=== PATIENT | male | born 1985 | race Caucasian/White ===

== ENCOUNTER 2025-04-25 10:18 | Emergency (ER) | payer OTHER ==
[~2025-04-25] VITALS: Ht 172.7 cm; Wt 82.0 kg
[2025-04-25 10:23] VITALS: O2SAT 99
[2025-04-25] MEDS: KETOROLAC 30MG/ML VIAL IM ONE (11:00)
[2025-04-25] MEDS: MORPHINE SULFATE 4 MG/ML INJ (FOR IV/IM USE) IM ONE (11:00)
[2025-04-25] MEDS ORDERED: IBUP-1455 MT (14:33)
[2025-04-25] MEDS ORDERED: HYDR-4001 MT (14:33)
[2025-04-25 15:34] VITALS: BP 120/76; PULSE 82; RESP 16; TEMP 37; O2SAT 99
== END 2025-04-25 15:36 | disposition home or self-care (01) ==
LOC: ER 10:18
DX: M25.512 Pain in left shoulder (principal); R07.89 Other chest pain; V43.52XA Car driver injured in collision with other type car in traffic accident, initial encounter; Y93.89 Activity, other specified; Y92.410 Unspecified street and highway as the place of occurrence of the external cause; Y99.8 Other external cause status
CPT/HCPCS: 71045; 73030; 96372; 99284; J1885; J2270; Z7610; A4565